=== PATIENT | female | born 2000 | race Two or more races ===

== ENCOUNTER 2021-03-08 23:50 | Emergency (ER) | payer SELFPAY ==
[~2021-03-08] VITALS: Ht 170.2 cm; Wt 80.3 kg
[2021-03-09] MEDS ORDERED: cefTRIAXone SOD 1,000 MG VL IM ONE (04:15)
[2021-03-09 04:27] VITALS: BP 115/71
[2021-03-09] MEDS ORDERED: BACITRACIN TOP OINT 1 UD PKG TOP ONE (04:30)
== END 2021-03-09 05:21 | disposition home or self-care (01) ==
LOC: ER 23:56
DX: S61.551A Open bite of right wrist, initial encounter (principal); W54.0XXA Bitten by dog, initial encounter; Y93.89 Activity, other specified; Y92.89 Other specified places as the place of occurrence of the external cause; Y99.8 Other external cause status
CPT/HCPCS: 73110; 81025; 96372; 99283; J0696

== ENCOUNTER 2021-09-23 00:31 | Emergency (ER) | payer BC, MEDICAID ==
[~2021-09-23] VITALS: Ht 170.2 cm; Wt 83.9 kg
[2021-09-23 01:00] VITALS: BP 124/59
== END 2021-09-23 05:45 | disposition home or self-care (01) ==
LOC: ER 00:31
DX: M71.21 Synovial cyst of popliteal space [Baker], right knee (principal)
CPT/HCPCS: 93971

== ENCOUNTER → 2023-09-26 | Outpatient (CLI) | payer MEDICAID ==
[2023-09-26 14:52] LABS: Basophils # (auto) 0 10 ^3/uL (0-0.2); Basophils % (auto) 0.6 % (0.0-2.0); Hemoglobin 11.3 g/dL (12.2-16.2); Lymphocytes # (auto) 2.1 10 ^3/uL (0.4-5.4); Neutrophils # (auto) 4.6 10 ^3/uL (1.6-8.6); White Blood Cell 7.6 10^3/uL (4.4-10.8)
[2023-09-26 14:53] LABS: Eosinophils # (auto) 0.1 10 ^3/uL (0-0.8); Eosinophils % (auto) 1.8 % (0.0-7.0); Hematocrit 35.6 % (36.0-46.0); Mean Corpuscular Hemoglobin 23.5 pg (28.0-32.0); Mean Corpuscular Hgb Conc. 31.6 g/dL (32.0-36.0); Mean Corpuscular Volume 74.4 fL (80.0-100.0); Monocytes # (auto) 0.7 10 ^3/uL (0-1.3); Neutrophils % (auto) 60.6 % (37.0-80.0); Nucleated Red Blood Cells % 0.3 %; Red Blood Cells 4.78 10^6/uL (4.0-5.20); Red Cell Distribution Width 18.8 % (11.8-14.3)
[2023-09-26 15:29] LABS: Alanine Aminotransferase 25 U/L (7-40); Albumin 4.9 g/dL (3.2-4.8); Alkaline Phosphatase 79 U/L (46-116); Anion Gap 5 (5-15); Aspartate Aminotransferase 20 U/L (13-40); BUN/Creatinine Ratio 10.4 (10.0-20.0); Bilirubin, Total 0.4 mg/dL (0.2-1.0); Blood Urea Nitrogen 10 mg/dL (9-23); Calcium 9.7 mg/dL (8.7-10.4); Carbon Dioxide 31 mmol/L (20-30); Chloride 101 mmol/L (98-107); Glucose 93 mg/dL (74-106); Potassium 3.9 mmol/L (3.5-5.1); Sodium 137 mmol/L (136-145)
[2023-09-27 06:06] LABS: Mumps IgG Antibody 84.6 AU/mL (Immune >10.9); Rubeola IgG Antibody >300.0 AU/mL (Immune >16.4); Varicella Zoster IgG Antibody 576 index (Immune >165)
== END | disposition home or self-care (01) ==
LOC: LAB 14:37
DX: Z02.0 Encounter for examination for admission to educational institution (principal); D64.9 Anemia, unspecified
CPT/HCPCS: 36415; 80053; 84439; 84443; 85025; 86706; 86735; 86762; 86765; 86787

== ENCOUNTER → 2024-01-01 | Outpatient (CLI) | payer MEDICAID | END | disposition home or self-care (01) | LOC: LAB 11:02 | PROVIDERS: ATTEND Internal Medicine Gastroenterology | DX: Z34.90 Encounter for supervision of normal pregnancy, unspecified, unspecified trimester (principal); R10.9 Unspecified abdominal pain; Z3A.00 Weeks of gestation of pregnancy not specified | CPT/HCPCS: 36415; 81025; 84702 ==

== ENCOUNTER 2024-06-26 08:40 | Emergency (ER) | payer MEDICAID ==
[~2024-06-26] VITALS: Ht 170.2 cm; Wt 95.0 kg
[2024-06-26] MEDS: KETOROLAC TROMETH 60MG/2ML VIAL IM ONE (10:55)
[2024-06-26 11:01] VITALS: BP 103/58; PULSE 63; RESP 16; TEMP 98.5; O2SAT 96
[2024-06-26] MEDS ORDERED: IBUP-1456 PO (11:06)
== END 2024-06-26 11:35 | disposition home or self-care (01) ==
LOC: ER 08:40
DX: M23.91 Unspecified internal derangement of right knee (principal); Z86.2 Personal history of diseases of the blood and blood-forming organs and certain disorders involving the immune mechanism
CPT/HCPCS: 73562; 96372; 99283; J1885

== ENCOUNTER → 2024-08-11 | Outpatient (CLI) | payer MEDICAID ==
[~2024-08-11] MED LIST: IBUP-1456 PO
== END | disposition home or self-care (01) ==
LOC: LAB 09:52
PROVIDERS: ATTEND Nurse Practitioner Family
DX: E03.8 Other specified hypothyroidism (principal)
CPT/HCPCS: 36415; 84439; 84443; 84550

== ENCOUNTER 2024-08-18 16:56 | Emergency (ER) | payer MEDICAID ==
[~2024-08-18] VITALS: Ht 170.2 cm; Wt 98.0 kg
[2024-08-18 17:14] VITALS: BP 137/86; PULSE 80; RESP 17; O2SAT 100
[2024-08-18 17:31] LABS: Basophils # (auto) 0 10 ^3/uL (0-0.2); Basophils % (auto) 0.6 % (0.0-2.0); Eosinophils # (auto) 0.1 10 ^3/uL (0-0.8); Eosinophils % (auto) 0.8 % (0.0-7.0); Hematocrit 35.5 % (36.0-46.0); Hemoglobin 11.5 g/dL (12.2-16.2); Lymphocytes # (auto) 2.6 10 ^3/uL (0.4-5.4); Lymphocytes % (auto) 29.4 % (10.0-50.0); Mean Corpuscular Hemoglobin 23.9 pg (28.0-32.0); Mean Corpuscular Hgb Conc. 32.4 g/dL (32.0-36.0); Mean Corpuscular Volume 73.9 fL (80.0-100.0); Monocytes # (auto) 0.7 10 ^3/uL (0-1.3); Monocytes % (auto) 7.4 % (0.0-12.0); Neutrophils # (auto) 5.4 10 ^3/uL (1.6-8.6); Neutrophils % (auto) 61.8 % (37.0-80.0); Nucleated Red Blood Cells % 0.2 %; Platelet Count (auto) 319 10^3/uL (140-450); Red Blood Cells 4.81 10^6/uL (4.0-5.20); Red Cell Distribution Width 16.5 % (11.8-14.3); White Blood Cell 8.8 10^3/uL (4.4-10.8)
[2024-08-18 18:36] LABS: Urine Bacteria None Seen /hpf (None Seen)
[2024-08-18 18:49] LABS: Urine Blood Negative /uL (Negative); Urine Clarity Clear (Clear); Urine Color Colorless (Yellow); Urine Protein, UAD Negative (Negative); Urine Specific Gravity 1.006 (1.001-1.035); Urine Urobilinogen Normal (Negative); Urine WBC <1 /hpf (0 - 5); Urine pH 5.5 (5.0-9.0)
== END 2024-08-18 19:41 | disposition home or self-care (01) ==
LOC: ER 16:56
DX: N93.9 Abnormal uterine and vaginal bleeding, unspecified (principal); R10.2 Pelvic and perineal pain; Z86.2 Personal history of diseases of the blood and blood-forming organs and certain disorders involving the immune mechanism; Z79.899 Other long term (current) drug therapy
CPT/HCPCS: 36415; 81001; 84702; 85025